=== PATIENT | male | born 1980 | race Two or more races ===

== ENCOUNTER 2018-05-22 08:40 | Emergency (ER) | payer OTHER ==
[~2018-05-22] VITALS: Ht 177.8 cm; Wt 104.1 kg
[2018-05-22 09:21] VITALS: BP 136/91
== END 2018-05-22 09:31 | disposition home or self-care (01) ==
LOC: ER 08:41
DX: F41.9 Anxiety disorder, unspecified (principal); R03.0 Elevated blood-pressure reading, without diagnosis of hypertension; R07.89 Other chest pain; F14.90 Cocaine use, unspecified, uncomplicated
CPT/HCPCS: 93005; 99284